=== PATIENT | female | born 1960 | race Caucasian/White ===

== ENCOUNTER → 2017-02-25 08:31 | Outpatient (CLI) | payer BC | END | disposition home or self-care (01) | LOC: D.RAD 08:31 | DX: R13.10 Dysphagia, unspecified (principal) ==

== ENCOUNTER 2017-12-27 07:20 | Inpatient (IN) | payer BC ==
[~2017-12-27] VITALS: Ht 175.3 cm; Wt 69.5 kg
[2017-12-27 07:59] LABS: BASOPHILS 0.2 % (0-2); EOSINOPHILS 1.3 % (0-7); HEMATOCRIT 41.9 % (36.0-48.0); HEMOGLOBIN 14.1 g/dL (12-16); IMMATURE GRANULOCYTES 0.2 % (0-5); LYMPHOCYTES 23.5 % (15-50); MCHC 33.7 g/dL (31.0-37.0); MEAN PLATELET VOLUME 9.5 fL (7.4-10.4); MONOCYTES 11.8 % (2-11); PLATELET COUNT 144 10x3/uL (130-400); RBC 4.87 10x6/uL (4.00-5.40); RDW 13.4 % (11.5-14.5); WBC 5.2 10x3/uL (4.8-10.8)
[2017-12-27 08:01] LABS: APPEARANCE CLEAR (CLEAR); BILIRUBIN NEGATIVE (NEGATIVE); COLOR YELLOW (YELLOW); GLUCOSE NEGATIVE (NEGATIVE); KETONE NEGATIVE (NEGATIVE); NITRITE NEGATIVE (NEGATIVE); PROTEIN NEGATIVE (NEGATIVE); SPECIFIC GRAVITY 1.015 (1.005-1.020); UROBILINOGEN NORMAL (NORMAL)
[2017-12-27 08:04] LABS: BACTERIA FEW /hpf (NONE SEEN); EPITHELIAL CELLS 0-5 /hpf (0-5); MUCUS >1+ /lpf (NONE SEEN); WHITE CELLS - URINE 0-5 /hpf (0-5)
[2017-12-27 08:15] LABS: ALBUMIN 3.7 g/dL (3.4-5.0); ALKALINE PHOSPHATASE 94 U/L (46-116); ALT (SGPT) 20 U/L (10-68); BILIRUBIN - TOTAL 0.49 mg/dL (0.2-1.3); CALC OSMOLALITY 278 mosm/kg (275-300); CALCIUM 8.4 mg/dL (8.5-10.1); CARBON DIOXIDE 24.7 mmol/L (21.0-32.0); CHLORIDE - SERUM 105 mmol/L (98-107); CREATININE - SERUM 0.8 mg/dL (0.6-1.3); GLUCOSE 105 mg/dL (74-106); LIPASE 135 U/L (73-393); POTASSIUM - SERUM 3.8 mmol/L (3.5-5.1); PROTEIN - SERUM 7.3 g/dL (6.4-8.2); SODIUM 140 mmol/L (136-145); UREA NITROGEN 12 mg/dL (7-18); eGFR NON AFRICAN AMERICAN 78 mL/min (90-120)
[2017-12-27 16:45] VITALS: BP 107/78; BMI 22.5
[2017-12-27 20:00] VITALS: BP 116/76
[2017-12-28 01:00] VITALS: BP 130/76
[2017-12-28 04:30] VITALS: BP 128/77
[2017-12-28 09:58] VITALS: BMI 22.7
[2017-12-28 10:05] VITALS: BP 148/89
[2017-12-28 12:09] VITALS: Ht 175.3 cm; Wt 69.5 kg
[2017-12-28 12:22] VITALS: BP 141/88
[2017-12-28 16:58] VITALS: BP 135/85
[2017-12-28 21:00] VITALS: BP 147/91
[2017-12-29 02:30] VITALS: BP 131/85
[2017-12-29 05:00] VITALS: BP 150/80
[2017-12-29 09:07] VITALS: BP 134/81
[2017-12-29 12:51] VITALS: BP 126/79
[2017-12-29 16:41] VITALS: BP 142/82
[2017-12-29 17:26] LABS: HEMATOCRIT 41.6 % (36.0-48.0); HEMOGLOBIN 13.9 g/dL (12-16)
[2017-12-29 20:00] VITALS: BP 134/81
[2017-12-30 01:00] VITALS: BP 129/81
[2017-12-30 04:00] VITALS: BP 141/99
[2017-12-30 05:19] LABS: BASOPHILS 0.8 % (0-2); EOSINOPHILS 4.1 % (0-7); HEMATOCRIT 39.5 % (36.0-48.0); HEMOGLOBIN 13.2 g/dL (12-16); IMMATURE GRANULOCYTES 0.3 % (0-5); LYMPHOCYTES 43.9 % (15-50); MCH 28.3 pg (26.0-34.0); MCHC 33.4 g/dL (31.0-37.0); MCV 84.6 fL (80.0-100.0); MEAN PLATELET VOLUME 9.7 fL (7.4-10.4); MONOCYTES 12.8 % (2-11); NEUTROPHILS 38.1 % (40-80); PLATELET COUNT 165 10x3/uL (130-400); RBC 4.67 10x6/uL (4.00-5.40); RDW 13.1 % (11.5-14.5); WBC 3.7 10x3/uL (4.8-10.8)
[2017-12-30 05:29] LABS: CALC OSMOLALITY 288 mosm/kg (275-300); CALCIUM 8.4 mg/dL (8.5-10.1); CARBON DIOXIDE 25.9 mmol/L (21.0-32.0); CHLORIDE - SERUM 109 mmol/L (98-107); CREATININE - SERUM 0.7 mg/dL (0.6-1.3); GLUCOSE 102 mg/dL (74-106); POTASSIUM - SERUM 3.2 mmol/L (3.5-5.1); SODIUM 147 mmol/L (136-145); UREA NITROGEN 4 mg/dL (7-18); eGFR NON AFRICAN AMERICAN > 90 mL/min (90-120)
[2017-12-30 08:52] VITALS: BP 139/95
[2017-12-30 11:29] VITALS: BP 130/90
[2017-12-30 16:15] VITALS: BP 144/90
[2017-12-30 20:03] VITALS: BP 140/91
[2017-12-31 00:58] VITALS: BP 150/91
[2017-12-31 04:00] VITALS: BP 139/80
[2017-12-31] MEDS ORDERED: FLUTICASONE PRO16 GM (05:55)
[2017-12-31] MEDS ORDERED: KENALOG 0.1 % 115 GM TOPICAL (05:55)
[2017-12-31 07:43] VITALS: BP 139/88
[2017-12-31 10:31] LABS: BASOPHILS 0.8 % (0-2); EOSINOPHILS 2.8 % (0-7); HEMATOCRIT 41.7 % (36.0-48.0); HEMOGLOBIN 14.1 g/dL (12-16); IMMATURE GRANULOCYTES 0.3 % (0-5); LYMPHOCYTES 43.1 % (15-50); MCH 28.4 pg (26.0-34.0); MCHC 33.8 g/dL (31.0-37.0); MCV 83.9 fL (80.0-100.0); MEAN PLATELET VOLUME 9.2 fL (7.4-10.4); MONOCYTES 10.7 % (2-11); NEUTROPHILS 42.3 % (40-80); PLATELET COUNT 179 10x3/uL (130-400); RBC 4.97 10x6/uL (4.00-5.40); RDW 12.8 % (11.5-14.5); WBC 3.9 10x3/uL (4.8-10.8)
[2017-12-31 10:50] LABS: ALBUMIN 3.5 g/dL (3.4-5.0); ALT (SGPT) 29 U/L (10-68); BILIRUBIN - TOTAL 0.32 mg/dL (0.2-1.3); CALCIUM 8.5 mg/dL (8.5-10.1); CARBON DIOXIDE 26.7 mmol/L (21.0-32.0); CHLORIDE - SERUM 105 mmol/L (98-107); CREATININE - SERUM 0.7 mg/dL (0.6-1.3); GLUCOSE 104 mg/dL (74-106); POTASSIUM - SERUM 3.2 mmol/L (3.5-5.1); SODIUM 144 mmol/L (136-145); eGFR NON AFRICAN AMERICAN > 90 mL/min (90-120)
[2017-12-31 10:51] LABS: ALKALINE PHOSPHATASE 85 U/L (46-116); CALC OSMOLALITY 284 mosm/kg (275-300); UREA NITROGEN 6 mg/dL (7-18)
[2017-12-31 11:21] VITALS: BP 170/94
[2017-12-31 15:19] VITALS: BP 151/90
[2017-12-31 20:00] VITALS: BP 144/92
[2018-01-01] VITALS: BP 136/84
[2018-01-01 04:00] VITALS: BP 134/80
[2018-01-01 05:12] LABS: BASOPHILS 0.2 % (0-2); HEMATOCRIT 42.4 % (36.0-48.0); HEMOGLOBIN 14.4 g/dL (12-16); IMMATURE GRANULOCYTES 0.2 % (0-5); MCH 28.5 pg (26.0-34.0); MCV 83.8 fL (80.0-100.0); MEAN PLATELET VOLUME 9.2 fL (7.4-10.4); MONOCYTES 12.2 % (2-11); NEUTROPHILS 42.4 % (40-80); PLATELET COUNT 180 10x3/uL (130-400); RBC 5.06 10x6/uL (4.00-5.40); RDW 13.1 % (11.5-14.5); WBC 4.3 10x3/uL (4.8-10.8)
[2018-01-01 05:25] LABS: ALBUMIN 3.4 g/dL (3.4-5.0); ALKALINE PHOSPHATASE 77 U/L (46-116); ALT (SGPT) 27 U/L (10-68); BILIRUBIN - TOTAL 0.38 mg/dL (0.2-1.3); CALC OSMOLALITY 285 mosm/kg (275-300); CALCIUM 8.8 mg/dL (8.5-10.1); CARBON DIOXIDE 25.2 mmol/L (21.0-32.0); CHLORIDE - SERUM 107 mmol/L (98-107); CREATININE - SERUM 0.7 mg/dL (0.6-1.3); GLUCOSE 100 mg/dL (74-106); POTASSIUM - SERUM 3.8 mmol/L (3.5-5.1); PROTEIN - SERUM 6.8 g/dL (6.4-8.2); SODIUM 144 mmol/L (136-145); eGFR NON AFRICAN AMERICAN > 90 mL/min (90-120)
[2018-01-01 05:29] LABS: UREA NITROGEN 10 mg/dL (7-18)
[2018-01-01 09:10] VITALS: BP 149/88
[2018-01-01 12:00] VITALS: BP 136/97
[2018-01-01] MEDS ORDERED: FLAGYL500 MG PO (12:43)
[2018-01-01] MEDS ORDERED: PROBIOTIC250 MG PO (12:44)
== END 2018-01-01 17:06 | disposition home or self-care (01) | DRG 373 ==
LOC: D.ER 07:20 → D.EDHOLD 12:08 → D.M2 12:08
PROVIDERS: Emergency Medicine; Family Medicine; Internal Medicine Nephrology
DX: A04.72 Enterocolitis due to Clostridium difficile, not specified as recurrent (principal); Z85.3 Personal history of malignant neoplasm of breast; K76.89 Other specified diseases of liver

== ENCOUNTER → 2018-01-23 13:05 | Outpatient (CLI) | payer BC ==
[2017-12-28 12:09] VITALS: BMI 22.7
[~2018-01-23 13:05] MED LIST: FLAGYL500 MG PO; FLUTICASONE PRO16 GM; KENALOG 0.1 % 115 GM TOPICAL; PROBIOTIC250 MG PO
[2018-01-24 10:21] LABS: HEPATITIS C ANTIBODY 0.3 (0.0-0.9)
== END | disposition home or self-care (01) ==
LOC: D.LAB 12:15
PROVIDERS: Internal Medicine Gastroenterology
DX: K76.0 Fatty (change of) liver, not elsewhere classified (principal); A04.72 Enterocolitis due to Clostridium difficile, not specified as recurrent

== ENCOUNTER → 2018-03-26 11:35 | Outpatient (CLI) | payer BC ==
[2017-12-28 12:09] VITALS: BMI 22.7
[~2018-03-26 11:35] MED LIST changes: +VANCOMYCIN HCL125 MG PO
[2018-04-04 04:16] LABS: OVA + PARASITE EXAM Final report (())
== END | disposition home or self-care (01) ==
LOC: D.LAB 11:35
PROVIDERS: Internal Medicine Gastroenterology
DX: Z86.19 Personal history of other infectious and parasitic diseases (principal); R19.7 Diarrhea, unspecified

== ENCOUNTER 2018-04-29 05:32 | Day surgery (SDC) | payer BC ==
[~2018-04-29] VITALS: Ht 175.3 cm; Wt 65.9 kg
--- NOTE | ~2018-04-29 | OP ---
PATIENT NAME: LOLI DELACRUZ MEDICAL RECORD: [id number] :56 LOCATION:D.OPS ADMISSION DATE: SURGEON: MACK FERNANDEZ MD DATE OF OPERATION: 04/29/2018 PROCEDURE: EGD with push enteroscopy and fecal microbial transplant. REFERRING PHYSICIAN: Yong Miller MD INDICATIONS: Ms. Delacruz is a delightful 58-year-old woman with a history of recurrent Clostridium difficile colitis. She was diagnosed during hospitalization at the end of December 2017 with presenting symptoms of fever, abdominal pain and diarrhea. Her stool was positive for CDT and she was treated with Flagyl for 14 days. She failed Flagyl treatment was treated with 21 days of vancomycin and on 03/31/2018, her stool was still positive for C. diff. Presently, she is having soft stools. She presents for outpatient fecal microbial transplant. PREMEDICATIONS: Total IV anesthesia. INSTRUMENT: [place]ona video colonoscope, pediatric. PROCEDURE AND FINDINGS: After receiving informed consent, Ms. Delacruz's posterior pharynx was anesthetized with Cetacaine spray. She was placed in left lateral decubitus position, sedated as per anesthesia. After achieving an adequate level of sedation, the colonoscope was introduced per orally and advanced into the jejunum without difficulty. At 120 cm, 60 cc of fecal microbial transplant was deployed followed by 120 cc water flush. The colonoscope was withdrawn. Of note, there was mild erythema in the antrum. Ms. Delacruz tolerated the procedure well. No immediate complications. ASSESSMENT: 1. 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 2. Mild gastritis. RECOMMENDATIONS: Probiotics. We will reschedule colonoscopy (appointments next month) to September 2018 in order to give the transplant time to be effective. TRANSINT:[id number] Voice Confirmation ID: [id number] DOCUMENT ID: [id number] MACK FERNANDEZ MD at 1430 CC: YONG MILLER MD [id number] DICTATION DATE: 04/29/18 0846 CORRECTION OFFICER: 04/29/18 1133 [facility] [place] 04/29/18 [facility] [address] [id number]
[~2018-04-29 05:32] MED LIST changes: -VANCOMYCIN HCL125 MG PO
[2018-04-29 05:57] LABS: BASOPHILS 0.3 % (0-2); EOSINOPHILS 4.9 % (0-7); HEMATOCRIT 44.3 % (36.0-48.0); HEMOGLOBIN 14.9 g/dL (12-16); LYMPHOCYTES 48.1 % (15-50); MCH 28.7 pg (26.0-34.0); MCHC 33.6 g/dL (31.0-37.0); MCV 85.4 fL (80.0-100.0); MEAN PLATELET VOLUME 9.4 fL (7.4-10.4); MONOCYTES 8.5 % (2-11); NEUTROPHILS 38.2 % (40-80); PLATELET COUNT 173 10x3/uL (130-400); RBC 5.19 10x6/uL (4.00-5.40); RDW 13.6 % (11.5-14.5); WBC 3.7 10x3/uL (4.8-10.8)
[2018-04-29 06:02] LABS: CALC OSMOLALITY 284 mosm/kg (275-300); CALCIUM 8.3 mg/dL (8.5-10.1); CARBON DIOXIDE 30.4 mmol/L (21.0-32.0); CHLORIDE - SERUM 106 mmol/L (98-107); CREATININE - SERUM 0.8 mg/dL (0.6-1.3); GLUCOSE 80 mg/dL (74-106); SODIUM 143 mmol/L (136-145); UREA NITROGEN 15 mg/dL (7-18); eGFR NON AFRICAN AMERICAN 77 mL/min (90-120)
[2018-04-29] MEDS ORDERED: VANCOMYCIN HCL125 MG PO (06:28)
[2018-04-29 06:47] VITALS: Ht 175.3 cm; Wt 65.9 kg
== END 2018-04-29 09:50 | disposition home or self-care (01) ==
LOC: D.OPS 05:32
PROVIDERS: Internal Medicine Gastroenterology
DX: A04.71 Enterocolitis due to Clostridium difficile, recurrent (principal); K29.70 Gastritis, unspecified, without bleeding; Z01.812 Encounter for preprocedural laboratory examination

== ENCOUNTER → 2018-07-18 08:20 | Outpatient (CLI) | payer BC ==
[2018-04-29 06:47] VITALS: BMI 21.4
[~2018-07-18 08:20] MED LIST changes: +VANCOMYCIN HCL125 MG PO
[2018-07-18 09:23] LABS: ALBUMIN 3.7 g/dL (3.4-5.0); BILIRUBIN - DIRECT 0.12 mg/dL (0.00-0.30); BILIRUBIN - INDIRECT 0.32 mg/dL (0.00-1.00); BILIRUBIN - TOTAL 0.44 mg/dL (0.2-1.3); PROTEIN - SERUM 7.5 g/dL (6.4-8.2)
== END | disposition home or self-care (01) ==
LOC: D.US 07-17 08:30 → D.LAB 07-17 09:00 → D.US 08:20
PROVIDERS: Internal Medicine Gastroenterology
DX: K76.0 Fatty (change of) liver, not elsewhere classified (principal)

== ENCOUNTER → 2018-12-19 06:54 | Outpatient (CLI) | payer BC ==
[2018-04-29 06:47] VITALS: BMI 21.4
[2018-12-01 13:27] LABS: ALBUMIN 3.9 g/dL (3.4-5.0); BILIRUBIN - DIRECT 0.12 mg/dL (0.00-0.30); BILIRUBIN - INDIRECT 0.24 mg/dL (0.00-1.00); BILIRUBIN - TOTAL 0.36 mg/dL (0.2-1.3)
== END | disposition home or self-care (01) ==
LOC: D.US 12-01 12:11
PROVIDERS: ATTEND Internal Medicine Gastroenterology
DX: K76.0 Fatty (change of) liver, not elsewhere classified (principal)